=== PATIENT | male | born 1975 | race Caucasian/White ===

== ENCOUNTER 2024-10-10 11:32 | Day surgery (SDC) | payer BC ==
[~2024-10-10] VITALS: Ht 175.3 cm; Wt 121.0 kg
[~2024-10-10 11:32] MED LIST: Lactated Ringer's 1,000 ML IV ONE; propofoL 50 ML IV ONE
[2024-10-10] MEDS ORDERED: Prinivil10 MG (12:13)
[2024-10-10] MEDS ORDERED: Lactated Ringer's 1,000 ML IV ONE (12:46)
[2024-10-10 13:55] VITALS: BP 114/89
== END 2024-10-10 13:50 | disposition home or self-care (01) ==
LOC: ORSCSDS 11:32
PROVIDERS: Surgery
PROC: 0DBL8ZX Excision of Transverse Colon, Via Natural or Artificial Opening Endoscopic, Diagnostic (ICD-10-PCS; principal; 2024-10-10 13:00)
PROC: 0DBN8ZX Excision of Sigmoid Colon, Via Natural or Artificial Opening Endoscopic, Diagnostic (ICD-10-PCS; principal; 2024-10-10 13:00)
DX: Z12.11 Encounter for screening for malignant neoplasm of colon (principal); D12.3 Benign neoplasm of transverse colon; D12.5 Benign neoplasm of sigmoid colon; K57.30 Diverticulosis of large intestine without perforation or abscess without bleeding; I10 Essential (primary) hypertension; E78.5 Hyperlipidemia, unspecified; Z79.899 Other long term (current) drug therapy; Z87.891 Personal history of nicotine dependence
CPT/HCPCS: 88305; J2704; J7120